=== PATIENT | female | born 1990 | race Caucasian/White ===

== ENCOUNTER → 2020-12-04 | Outpatient (CLI) | payer OTHER ==
--- NOTE | 2020-12-04 10:46 | REP ---
INDICATION: POST PROCEDURE PAIN, POST HYSTERECTOMY. COMPARISON: Comparison CT study abdomen and pelvis November 12, 2012.. TECHNIQUE: Complete abdominal sonography. FINDINGS: Scanning through the right upper quadrant of the abdomen demonstrates a normal sized, slightly thick walled gallbladder without evidence of stone or polyp. Gallbladder wall thickness measures 5 mm. Common bile duct is normal measuring 0.2 cm in greatest diameter. No focal liver lesion is seen. There is no evidence of ascites. Scanning in the left upper quadrant demonstrates a normal size homogeneous spleen, 9.5 cm in greatest diameter. Renal cortical echogenicity pattern is normal and renal contours are smooth bilaterally. There is no evidence of hydronephrosis, cyst, or mass. Right renal dimensions are 9.3 x 4.2 x 3.7 cm. Left kidney measures 9.4 x 4.2 x 3.8 cm. IMPRESSION: Mild gallbladder wall thickening, otherwise unremarkable complete abdominal sonography. <Electronically signed by Omar Koehler > 12/04/20 [id number]
--- NOTE | 2020-12-04 11:18 | REP ---
INDICATION: POST PROCEDURE PAIN, POST HYSTERECTOMY COMPARISON: None. TECHNIQUE: Transabdominal pelvic ultrasound using B-mode grayscale and color evaluation. FINDINGS: Bladder is unremarkable and measures 7.1 x 8.6 x 4.6 cm. Evidence for prior partial hysterectomy. No pelvic fluid or abnormal pelvic/adnexal mass lesion. The left ovary is not visualized. There is a 5.4 x 4.2 x 4.0 cm somewhat complex cystic structure in the right adnexa which may represent right ovary with physiologic cystic changes. IMPRESSION: 1. Status post hysterectomy without abnormal pelvic fluid or mass lesion. 2. Complex septated structure in the right adnexa possibly representing right ovary with physiologic changes. Left ovary not visualized. If the patient remains symptomatic consider re-evaluation in 4-6 weeks. <Electronically signed by Fahad Cox > 12/04/20 [id number]
== END ==
LOC: M RAD 09:55
PROVIDERS: ATTEND Internal Medicine
DX: G89.28 Other chronic postprocedural pain (principal); Z90.710 Acquired absence of both cervix and uterus; R10.9 Unspecified abdominal pain; K82.8 Other specified diseases of gallbladder